=== PATIENT | female | born 1955 | race Caucasian/White ===

== ENCOUNTER 2019-06-16 18:11 | Inpatient (IN) | payer BC ==
[~2019-06-16] VITALS: Ht 177.8 cm; Wt 82.6 kg
[2019-06-16] MEDS ORDERED: NACL 0.9% 1,000 ML IV ONE (18:17)
[2019-06-16 18:20] VITALS: BP_SYST 142
[2019-06-16 18:40] LABS: BASOPHILS % (AUTO) 0.6 % (0.0-2.0); EOSINOPHILS # (AUTO) 0.1 K/uL (0.0-0.4); HEMATOCRIT 39.2 % (36-48); LYMPHOCYTES # (AUTO) 2.1 K/uL (1.0-5.5); LYMPHOCYTES % (AUTO) 29.4 % (20.5-51.5); MEAN CORPUSCULAR HEMOGLOBIN 30 pg (27-31); MEAN CORPUSCULAR HGB CONC 33 % (32-36); MEAN CORPUSCULAR VOLUME 89 fL (79.0-98.0); MONOCYTES # (AUTO) 0.6 K/uL (0.0-1.0); MONOCYTES % (AUTO) 8.8 % (1.7-9.3); NEUTROPHILS # (AUTO) 4.2 K/uL (1.8-7.7); NEUTROPHILS % (AUTO) 59.2 % (40.0-70.0); PLATELET COUNT (AUTO) 189 K/uL (130-430); RED CELL DISTRIBUTION WIDTH 14.4 % (9.0-15.0); WHITE BLOOD COUNT (AUTO) 7.2 K/uL (4.8-10.8)
[2019-06-16 18:49] LABS: ANION GAP 11 (5-15); CALCIUM 9.8 mg/dL (8.4-11.0); CHLORIDE 104 mmol/L (98-107); CREATININE 0.82 mg/dL (0.55-1.30); GFR AFRICAN AMERICAN 91 mL/min (>90); GLUCOSE 120 mg/dL (70-99); POTASSIUM 3.5 mmol/L (3.5-5.1); SODIUM SERUM 137 mmol/L (136-145); UREA NITROGEN, BLOOD 26 mg/dL (8-21)
[2019-06-16 18:57] LABS: ALANINE AMINOTRANSFERASE 21 U/L (12-78); ALBUMIN 3.6 g/dL (3.4-4.8); ASPARTATE AMINOTRANSFERASE 12 U/L (10-37); TOTAL BILIRUBIN 0.2 mg/dL (0.0-1.0)
[2019-06-16] MEDS ORDERED: MORPHINE 2 MG/ML INJ. SYRINGE IVP ONE (19:00)
[2019-06-16] MEDS ORDERED: ERGO400C2 PO (19:34)
[2019-06-16] MEDS ORDERED: CALC-1094 PO (19:34)
[2019-06-16] MEDS ORDERED: MULT-1117 PO (19:34)
[2019-06-16] MEDS ORDERED: DICYCLOMINE HCL 10 MG/5 ML SOLUTION PO ONE (19:45)
[2019-06-16] MEDS ORDERED: MAG-AL HYDROX/SIMETH 30 ML UDC PO ONE (19:45)
[2019-06-16] MEDS ORDERED: LIDOCAINE VISCOUS 2%, 15 ML UDC MM ONE (19:45)
[2019-06-16] MEDS ORDERED: PANTOPRAZOLE SODIUM 40 MG TAB PO ONE (19:45)
[2019-06-16] MEDS ORDERED: MORPHINE 2 MG/ML INJ. SYRINGE IVP PRN (20:30)
[2019-06-16] MEDS ORDERED: MAG-AL HYDROX/SIMETH 30 ML UDC PO PRN (20:30)
[2019-06-16] MEDS ORDERED: ACETAMINOPHEN 325 MG TABLET PO PRN (20:45)
[2019-06-16] MEDS ORDERED: TEMAZEPAM 15 MG CAPSULE PO PRN (20:45)
[2019-06-16] MEDS ORDERED: MAG-AL HYDROX/SIMETH 30 ML UDC ONE (20:45)
[2019-06-16] MEDS ORDERED: ENOXAPARIN SODIUM 40 MG/0.4 ML SYRINGE SUBCUT SCH (21:00)
[2019-06-16 21:48] VITALS: BP_SYST 143
[2019-06-16 22:49] VITALS: BP_SYST 143
[2019-06-17] VITALS (7 sets, daily range): BP systolic 130–148
[2019-06-17] MEDS ORDERED: ONDANSETRON HCL 4 MG/2 ML VIAL IVP PRN (00:30)
[2019-06-17 01:08] LABS: BILIRUBIN,URINE NEGATIVE (NEGATIVE); BLOOD, URINE 1+ (NEGATIVE); CLARITY/URINE CLEAR (CLEAR); COLOR,URINE YELLOW (YELLOW); GLUCOSE,URINE NEGATIVE (NEGATIVE); KETONES,URINE 2+ (NEGATIVE); LEUKOCYTE ESTERASE ,URINE NEGATIVE (NEGATIVE); NITRITE, URINE NEGATIVE (NEGATIVE); PH,URINE 5.5 (5.0-8.0); PROTEIN URINE NEGATIVE (NEGATIVE); UROBILINOGEN,URINE 0.2 (0.2-1.0)
[2019-06-17 01:21] LABS: BACTERIA,URINE FEW /HPF (None Seen); WBC,URINE 0-3 /HPF (0-3)
[2019-06-17 03:56] LABS: BASOPHILS % (AUTO) 0.6 % (0.0-2.0); EOSINOPHILS % (AUTO) 0.5 % (0.0-4.0); HEMATOCRIT 40.5 % (36-48); HEMOGLOBIN 13.4 g/dL (12.0-16.0); LYMPHOCYTES # (AUTO) 1.3 K/uL (1.0-5.5); LYMPHOCYTES % (AUTO) 16.7 % (20.5-51.5); MEAN CORPUSCULAR HEMOGLOBIN 29 pg (27-31); MEAN CORPUSCULAR HGB CONC 33 % (32-36); MEAN CORPUSCULAR VOLUME 89 fL (79.0-98.0); MONOCYTES # (AUTO) 0.5 K/uL (0.0-1.0); MONOCYTES % (AUTO) 6.1 % (1.7-9.3); NEUTROPHILS # (AUTO) 6.1 K/uL (1.8-7.7); NEUTROPHILS % (AUTO) 76.1 % (40.0-70.0); PLATELET COUNT (AUTO) 200 K/uL (130-430); RED BLOOD CELL COUNT(AUTO) 4.55 MIL/uL (4.2-6.2); RED CELL DISTRIBUTION WIDTH 14.5 % (9.0-15.0)
[2019-06-17 04:27] LABS: ALBUMIN 3.5 g/dL (3.4-4.8); CALCIUM 9.1 mg/dL (8.4-11.0); CREATININE 0.67 mg/dL (0.55-1.30); POTASSIUM 3.8 mmol/L (3.5-5.1); THYROID STIMULATING HORMONE 2.5 uIu/mL (0.36-3.74); TOTAL BILIRUBIN 0.2 mg/dL (0.0-1.0)
[2019-06-17] MEDS ORDERED: ENOXAPARIN SODIUM 40 MG/0.4 ML SYRINGE SUBCUT SCH (05:30)
[2019-06-17] MEDS ORDERED: PANTOPRAZOLE SODIUM 40 MG TAB PO SCH (07:00)
[2019-06-17] MEDS: NITROGLYCERIN 0.4 MG TAB.SUBL SL PRN ×2 (07:06→07:08)
[2019-06-17] MEDS ORDERED: ASPIRIN 81 MG TABLET(ECOTRIN) PO SCH (09:00)
[2019-06-17] MEDS ORDERED: ENOXAPARIN SODIUM 80 MG/0.8 ML SYRINGE SUBCUT SCH (21:00)
== END 2019-06-17 17:05 | disposition short-term general hospital (02) | DRG 282 ==
LOC: SED 18:11 → STU 19:31
PROVIDERS: ADMIT Internal Medicine; ATTEND Internal Medicine
DX: I21.4 Non-ST elevation (NSTEMI) myocardial infarction (principal); E66.9 Obesity, unspecified; E78.5 Hyperlipidemia, unspecified; G47.33 Obstructive sleep apnea (adult) (pediatric); I24.9 Acute ischemic heart disease, unspecified; R03.0 Elevated blood-pressure reading, without diagnosis of hypertension; E04.9 Nontoxic goiter, unspecified; I10 Essential (primary) hypertension; F41.9 Anxiety disorder, unspecified; Z68.26 Body mass index [BMI] 26.0-26.9, adult
CPT/HCPCS: 36415; 71045; 80053; 80061; 81000-TC; 82962; 83690-TC; 83735-TC; 84439; 84443-TC; 84484; 85025; 85379; 93005; 93306; 94660; 96361; 96374; 99285; G0378; J1650; J2001; J2270

== ENCOUNTER 2023-01-17 05:30 | Emergency (ER) | payer OTHER, MEDICARE ==
[~2023-01-17] VITALS: Ht 180.3 cm; Wt 96.2 kg
[~2023-01-17 05:30] MED LIST: CALC-1312 PO; ERGO400C2 PO; MULT-1117 PO
[2023-01-17 05:37] VITALS: BP_SYST 159
--- NOTE | 2023-01-17 05:37 | NUR ---
Placed in room 2 . Placed on dietetics teacher, blood pressure machine and pulse oximeter. To gown for exam. Side rails up.Triage at the bedside by Primary nurse Chris.
--- NOTE | 2023-01-17 05:48 | NUR ---
Note kaia in [facility] - 01/17/23 at 0636 by [email or web address] Placed in room 02 . Placed on data coordinator, blood pressure machine and pulse oximeter. To gown for exam. Side rails up.
--- NOTE | 2023-01-17 05:49 | NUR ---
BIB [facility] HOME. PT IS AA&OX4. AFEBRILE. NAD. DENIES PAIN. C/O R FACIAL NUMBNESS PER PT STARTED BETWEEN 0430 & 0530. PER PT, FACIAL NUMBNESS FEELS BETTER NOW. NO FACIAL DROOPING, NO DROOLING, PERRLA. EQUAL MANAGER RESPIRATORY & STRENGTH AND ON ALL EXTREMITIES. AMBULATED TO THE BED W/ STEADY GAIT. PER PT, SHE DOUBLED UP ON HER MORNING DOSE OF LISINOPRIL COZ SHE FEELS LIKE HER BP IS HIGH, SHE CHECKED AT HOME & IT WAS 180S AND HER BP'S USUALLY 130S. NKDA PMH: HTN, HEART ATTACK 2019
--- NOTE | 2023-01-17 05:53 | NUR ---
ER at bedside examining patient.
--- NOTE | 2023-01-17 05:53 | NUR ---
# 20 gauge angiocath placed to RFA. Use of asceptic technique. Opsite placed over site. Blood return noted. Blood for lab drawn from site, GIVEN TO PUNCH PRESS SETTER.. Flushed with 10 cc of normal saline. No evidence of infiltration noted. Patient tolerated well.
--- NOTE | 2023-01-17 05:54 | NUR ---
Code stroke activated
--- NOTE | 2023-01-17 06:05 | NUR ---
ER at bedside examining patient.
[2023-01-17] MEDS ORDERED: ASPIRIN 325 MG TABLET ONE (06:09)
[2023-01-17] MEDS ORDERED: IOHEXOL 350 mgI/mL, 150 ML INFUS..BTL IV ONE (06:13)
--- NOTE | 2023-01-17 06:13 | NUR ---
Pt taken to CT via samantha harris/ primary nurse Chris.
[2023-01-17 06:14] LABS: BASOPHILS % (AUTO) 0.7 % (0.0-2.0); EOSINOPHILS # (AUTO) 0.1 K/uL (0.0-0.4); EOSINOPHILS % (AUTO) 2.6 % (0.0-4.0); HEMOGLOBIN 13.4 g/dL (12.0-16.0); LYMPHOCYTES # (AUTO) 1.1 K/uL (1.0-5.5); LYMPHOCYTES % (AUTO) 23.5 % (20.5-51.5); MEAN CORPUSCULAR HEMOGLOBIN 29 pg (27-31); MEAN CORPUSCULAR HGB CONC 33 % (32-36); MEAN CORPUSCULAR VOLUME 89 fL (79.0-98.0); MONOCYTES # (AUTO) 0.4 K/uL (0.0-1.0); MONOCYTES % (AUTO) 8.8 % (1.7-9.3); NEUTROPHILS # (AUTO) 3.1 K/uL (1.8-7.7); NEUTROPHILS % (AUTO) 64.4 % (40.0-70.0); PLATELET COUNT (AUTO) 213 K/uL (130-430); RED BLOOD CELL COUNT(AUTO) 4.61 MIL/uL (4.2-6.2); RED CELL DISTRIBUTION WIDTH 14.6 % (9.0-15.0); WHITE BLOOD COUNT (AUTO) 4.9 K/uL (4.8-10.8)
[2023-01-17] MEDS ORDERED: ASPIRIN 325 MG TABLET PO ONE (06:15)
--- NOTE | 2023-01-17 06:28 | NUR ---
Pt back to ER and moved to bed 1.
--- NOTE | 2023-01-17 06:30 | NUR ---
PER PT, SHE TOOK 2 BABY ASA THIS AM AT HOME.
[2023-01-17 06:33] LABS: ANION GAP 8 (5-15); CHLORIDE 106 mmol/L (98-107); CREATININE 0.73 mg/dL (0.55-1.30); GFR AFRICAN AMERICAN 103 mL/min (>90); GLUCOSE 88 mg/dL (70-99); UREA NITROGEN, BLOOD 21 mg/dL (8-21)
--- NOTE | 2023-01-17 06:36 | NUR ---
# 20 gauge angiocath placed to LAC. Use of asceptic technique. Opsite placed over site. Flushed with 10 cc of normal saline. No evidence of infiltration noted. Patient tolerated well.
--- NOTE | 2023-01-17 06:37 | NUR ---
TELE-NEURO IN PROGRESS AT BEDSIDE.
[2023-01-17 06:39] LABS: ALANINE AMINOTRANSFERASE 23 U/L (12-78); ALBUMIN 3.5 g/dL (3.4-4.8); ASPARTATE AMINOTRANSFERASE 13 U/L (10-37); TOTAL BILIRUBIN 0.4 mg/dL (0.0-1.0)
--- NOTE | 2023-01-17 07:05 | NUR ---
REPORT GIVEN TO KATHY WONG AT BEDSIDE W/ OPPORTUNITY FOR QQS.
--- NOTE | 2023-01-17 07:10 | NUR ---
[facility]
--- NOTE | 2023-01-17 07:40 | NUR ---
DR. PERRY AT BEDSIDE TO DISCUSS POC. PT IS CLEARED BY NEUROLOGIST TO DISCHARGE, PT IS ADVISED TO TAKE PLAVIX. PT AGREED TO POC.
[2023-01-17] MEDS ORDERED: CLOP75TA32 PO (07:48)
[2023-01-17 08:15] VITALS: BP_SYST 124
--- NOTE | 2023-01-17 08:17 | NUR ---
Patient given written and verbal discharge instructions and verbalizes understanding. ER MD discussed with patient the results and treatment provided. Patient in stable condition. ID arm band removed. IV catheter removed intact and dressing applied, no active bleeding. Rx of CLOPIDOGREL given. Patient educated on TIA and to follow up with PMD. Opportunity for questions provided and answered. Medication side effect fact sheet provided.
== END 2023-01-17 08:17 | disposition home or self-care (01) ==
LOC: SED 05:30
DX: G45.9 Transient cerebral ischemic attack, unspecified (principal); R20.2 Paresthesia of skin; I10 Essential (primary) hypertension; Z79.899 Other long term (current) drug therapy
CPT/HCPCS: 99285; 70496; 80053; 83880; 85025; 85379; 84484; 36415; 93005; 70498; 70450; 76376; Q9967